=== PATIENT | female | born 1955 | race American Indian/Alaskan Native ===

== ENCOUNTER 2017-10-14 06:03 | Day surgery (SDC) | payer OTHER ==
[2017-10-13 09:11] VITALS: BMI 37.8
[2017-10-14] MEDS ORDERED: ceFAZolin IV 2 gm in Dextrose 2 GM/50 ML BAG IVPB ONE (07:34)
[2017-10-14] MEDS ORDERED: EPINEPHrine 1:1000 Nasal Sol(30mL) ONE (07:34)
[2017-10-14] MEDS ORDERED: Lactated Ringer's 1,000 ML IV ONE ×2 (08:10→11:05)
[2017-10-14] MEDS ORDERED: Propofol 10 mg/ml Inj (20 ML) ONE (08:14)
[2017-10-14] MEDS ORDERED: Midazolam 2 MG/2 ML VIAL ONE (08:14)
[2017-10-14] MEDS ORDERED: Rocuronium 10 mg/ml (5 ml) ONE (09:12)
[2017-10-14] MEDS ORDERED: HYDROmorphone 0.5 mg/0.5 ml ISec IVP PRN (10:36)
[2017-10-14] MEDS ORDERED: Neostigmine Methylsulfate 3mg/3ml Syringe IV ONE (10:40)
--- NOTE | 2017-10-14 11:01 | PCM.SURG1 ---
Surgeon's Initial Post Op Note - Surgeon's Notes Surgeon: Cristian Langley MD [employer] Supervisor: none Type of Anesthesia: General Endo, Block [facility] Pre-Operative Diagnosis: Right knee. #1 medial meniscal tear. #2 chondromalacia all 3 compartments. #3 synovitis Operative Findings: Right knee: #1 complex medial meniscal tear. #2 complex lateral meniscal tear. #3 3 compartment chondromalacia grade 4. #4 3 compartment synovitis. #5 plica bands Post-Operative Diagnosis: Right knee: #1 complex medial meniscal tear. #2 complex lateral meniscal tear. #3 3 compartment chondromalacia grade 4. #4 3 compartment synovitis. #5 plica bands Operation Performed: Right knee: Arthroscopic. #1 partial medial menisectomy. #2 partial lateral menisectomy. #3 extensive synovectomy. #4 chondroplasty medial/lateral/PF compartments Specimen/Specimens Removed: specimen= none. implants= none. complications= none Estimated Blood Loss: EBL {In ML}: 3 Blood Products Given: N/A Drains Used: No Drains Post-Op Condition: Good Date of Surgery/Procedure: 10/14/17 Time of Surgery/Procedure: 11:02
[2017-10-14] MEDS ORDERED: Oxycodone/Acetaminophen 5/325 mg Tab PO PRN (11:02)
[2017-10-14 11:15] VITALS: O2SAT 100
[2017-10-14] MEDS ORDERED: Bupivacaine HCl 0.5% PF (30 ml) Inj ONE (12:03)
--- NOTE | 2017-10-14 12:16 | PCM.ANESB7 ---
Adductor Canal Block - Adductor Canal Block Date of Procedure: 10/14/17 Anesthiologist: aren Procedure Performed: Adductor Canal Block Right - Procedure Adductor Canal Block: The procedure was explained to the patient that it is for the post-operative pain management. Consent was obtained after a thorough discussion with the patient regarding the benefits and possible complications of local anesthetic adductor canal block of the femoral nerve. Standard monitors, as defined by the ASA, were applied to the patient. Time-out was held with the circulating nurse to confirm the appropriate block. After applying supplemental oxygen and administering IV Sedation as needed, the patient was placed in supine position with and the operative leg was flexed slightly at the knee and externally rotated as needed, and was kept anatomically stable. The mid-thigh of the ___ lower extremity was exposed. The ultrasound transducer was then applied transversely along the medial aspect, about midway down the thigh and the femoral artery and vein were identified in appropriate relation with the sartorius muscle. At this time, the femoral nerve was visualized lateral to the femoral artery within the canal. After thorough identification, this area area was prepped with Chloroprep solution three times and 1 % Lidocaine was injected subcutaneously for topical anesthesia. At this point, a #22 gauge Stimuplex 4-inch needle was inserted in-plane in a [id number] orientation, and advanced toward the femoral nerve. Advancement was performed carefully under direct ultrasound visualization. MA. After negative aspiration, ___5__cc of __.5___% ____bupvicaine was injected and this was followed with __15____ cc of ___.5____ % bupivicaine . Under ultrasound guidance the local anesthetics were observed spreading around the femoral nerve. The needle was removed intact and sterile dressing was applied. The patient had stable vital signs, was conscious and in no apparent distress. The patient tolerated the femoral nerve block well with stable vital signs and was prepared for subsequent surgery
[2017-10-14 13:11] VITALS: BP 132/76; PULSE 82; RESP 18; TEMP 97
--- NOTE | 2017-12-08 02:17 | OP ---
Copied To: Cristian Langley MD Attending MD: Cristian Langley MD PROCEDURE DATE: 10/14/2017 PREOPERATIVE DIAGNOSES: Right knee: 1. Medial meniscal tear. 2. Chondromalacia of all three compartments. 3. All three compartment synovitis. 4. Chronic ACL tear (stable). POSTOPERATIVE DIAGNOSIS: Right knee: 1. Complex medial meniscal tear. 2. Complex lateral meniscal tear. 3. Chondromalacia grade III to IV throughout all three compartments. 4. Extensive synovitis throughout all three compartments. 5. Medial and lateral plica bands. 6. Hypertrophic fat pad causing anterior impingement. 7. Chronic ACL tear (stable). PROCEDURE: Right knee arthroscopic, 1. Partial medial meniscectomy. 2. Partial lateral meniscectomy. 3. Extensive synovectomy of all three compartments. 4. Chondroplasty of all three compartments. 5. Resection and debridement of symptomatic medial and lateral plica bands. 6. Resection and debridement of hypertrophic fat pad. 7. Platelet-rich plasma intraarticular injection. 8. Debridement ACL tearing/remnant. SURGEON: Cristian Langley MD [employer] OPERATOR: None. ANESTHESIA: General endotracheal anesthesia with a postop regional nerve block placed by anesthesia staff in PACU. ESTIMATED BLOOD LOSS: 3 mL. SPECIMEN: None. IMPLANTS: None. COMPLICATIONS: None. DRAINS: None. DISPOSITION: The patient was extubated and transferred to PACU in stable condition and tolerated the procedure well. INDICATIONS FOR SURGERY: The patient is a 62-year-old female with a past medical history significant for hypertension and presented to the office for the first time under my care on 05/30/2017 with right knee pain started two years ago, but progressively worsened over the past two months prior to the presentation to the point of being rate 10/10 and disabling. She stated that she was having significant difficulty with going up and down stairs, standing for extended periods of time, lifting any objects or kneeling. She rated the pain as 10/10 and accompanied by periodic episodes of swelling. She had already undergone conservative treatment referred by primary care physician for physical therapy and anti-inflammatory medications as well as [id number] bracing. She was referred for an MRI of the right knee by her primary care physician, which was done at [facility] on 03/30/2017, which was read as: 1. Complete tear of ACL with strain of PCL. 2. A 2-cm osteochondral defect, medial tibial plateau. 3. Complex tears of both medial and lateral menisci. 4. Large joint effusion with chondromalacia of the patella. 5. Chondromalacia and osteoarthritic changes. She underwent under my care cortisone mixture injections in the office on 05/30/2017, 06/27/2017, 07/28/2017 with each injection providing here with near complete resolution obtained that would last approximately three weeks until the pain would start to return. She was compliant with physical therapy and brace usage with each injection lasting only three weeks, and the pain was localized to the medial and lateral joint lines with mechanical symptoms as well as multiple episodes of giving way and buckling and locking. She was indicated for right knee arthroscopic partial meniscectomies of the medial and lateral meniscus versus stabilization/repair and synovectomy, chondroplasty/microfracture and all related indicated procedures. She was referred to her primary care physician for preadmission testing, and the procedure was scheduled at [facility] on 10/14/2017. The risks, benefits and alternatives of the procedure were discussed at length with the patient. The risks include not limited to infection, neurovascular damage, need for further surgery, failure of repair, chondrolysis, acceleration of chondral wear and the need for future total knee arthroplasty if the surgery fails to stop her progression of the degenerative joint disease, development of chronic pain and disability, development of stiffness, development of blood clots including DVT and PE, anesthesia reactions including . After answering all of her questions, she stated that she understood the risks and wished to proceed with surgery. She watched the surgical animation videos and diagnostic animation videos and stated that she had a good understanding of her procedure as well as her multiple diagnoses. I also reviewed at length with the patient the postoperative rehabilitation protocol as she stated that she understood that there is a need for compliance with the rehab protocol in order to maximize the chance of having successful outcome after surgery. Again, she was referred to her primary care physician for preadmission testing and medical evaluation, and the procedure was scheduled at [facility] on 10/14/2017. PROCEDURE IN DETAIL: The patient was identified in the preoperative holding, area and the right knee was marked for surgery. Once again as described above, the risks, benefits, and alternatives of the procedure were discussed at length with the patient, and informed consent was obtained. After a brief discussion with anesthesia staff, the patient was taken to the operating room and placed on the well-padded operating room table with all bony prominences and superficial neurovascular structures were well padded. An initial time-out was done with the surgeon, anesthesia staff, OR staff, all in agreement with the patient, procedure being done and extremity being operated on. General anesthesia was administered without any difficulty or complication. Examination under anesthesia was then carried out. Examination under anesthesia: Right knee with full range of motion compared to contralateral knee, there was patellofemoral crepitance as well as a visible infrapatellar mechanical click representing a symptomatic plica band. There was mild evidence of instability with a 1+ anterior balloon design printer neutral external rotation and internal rotation, negative posterior drawer, negative reverse Little, 1 to 2+ Little with a firm endpoint, negative pivot shift, negative reverse pivot shift, negative posterior lateral corner drawer sign, negative dial sign, patella with crepitance and normal tracking with no evidence of patellofemoral instability. Skin was intact with no swelling, no warmth, no erythema. A tourniquet was placed high on the right thigh, and the right lower extremity was prepped and draped in the standard sterile fashion. A final time-out was done with the surgeon, anesthesia staff, OR staff, all in agreement with the patient, procedure being done and the extremity being operated on. Then, 50 mL of normal saline was used to insufflate the knee joint. A stab incision was made creating the anterior lateral portal through skin down to the subcutaneous tissue down to the level of the capsule. The blunt arthroscopic trocar and cannula were inserted into the suprapatellar pouch, and the knee joint was insufflated with arthroscopic fluid. The arthroscopic camera was inserted, and a diagnostic arthroscopy was then started. DIAGNOSTIC ARTHROSCOPY: Attention was first turned towards the suprapatellar pouch with no evidence of adhesions or loose bodies. Attention was then turned towards the patellofemoral joint where immediately seen was progressive chondromalacia grade III to IV with some areas of subchondral bone exposure. The patella was well seated with no evidence of instability. There were immediately obvious thickened hypertrophic plica bands on the medial and lateral aspects of the inferior pole of the patella creating mechanical symptoms for both the patellofemoral articulation and the medial and lateral femoral condyle. Attention was then turned towards the medial gutter where as stated before there was a thickened plica. Attention was then turned towards the medial compartment where immediately seen was the complex medial meniscal tear of the degenerative process involving the anterior mid body extending to the posterior horn with unstable flap tears that was not amenable to repair. The articular surface of the medial femoral condyle and the medial tibial plateau exhibited grade III to IV chondromalacia throughout with some areas of full-thickness cartilage loss with exposed subchondral bone at the weightbearing aspect of the medial femoral condyle. Attention was then turned towards the lateral compartment, which exhibited grade II to III chondromalacia and no exposed subchondral bone for the lateral femoral condyle and the lateral tibial plateau. The lateral meniscus exhibited complex tearing of the posterior horn that was not amenable to repair and also of a degenerative nature. Attention was then turned towards the intercondylar notch where there was indeed a chronic ACL tear with some scar down the fibers providing some clinical stability. Prior to the diagnostic arthroscopy, an anterior medial portal was created with stab incisions through the skin down the subcutaneous tissue down to the level of the capsule after spinal needle localization was used to identify optimal anterior medial portal entry, and a diagnostic arthroscopy was done with the arthroscopic probe in hand. ARTHROSCOPIC PARTIAL MEDIAL MENISCECTOMY: With the use of the arthroscopic shaver and radiofrequency ablation as well as arthroscopic meniscal biters, a partial medial meniscectomy was carried out removing all of the unstable fragments of the medial meniscal degenerative tearing of flat tearing that was not amenable to repair. After the partial medial meniscectomy was carried out, a smooth contour was established. Approximately 80% of the medial meniscus had been removed back to the medial capsule with almost no significant remnant medical meniscus remaining as this was a significant complex degenerative tear extending from the posterior horn through the mid body up to the anterior horn. Once a smooth contour and all offending tissue was removed from the medial compartments, final images were taken. ARTHROSCOPIC PARTIAL LATERAL MENISCECTOMY: With the use of the arthroscopic shaver and radiofrequency ablation as well as meniscal biters, a partial lateral meniscectomy was carried out establishing a smooth rim of cartilage removing the damaged meniscal tissue and tissue creating mechanical symptoms to the lateral compartment. The complex tearing started at the level of the posterior horn of the lateral meniscus and extended to the posterior mid body. After smooth contour was worked out and all unstable fragments of the lateral meniscus tissue were removed, approximately 40% of lateral meniscus was removed overall establishing a smooth contour and removing mechanical symptoms. ARTHROSCOPIC EXTENSIVE SYNOVECTOMY: With the use of the radiofrequency ablation and arthroscopic shaver, an extensive synovectomy of all three compartments was carried out removing the inflamed hypertrophic synovium extending from the anterior compartment and then two of three compartments of the knee. There was also a debridement and resection of the symptomatic medial and lateral plica bands carried out with maintaining good hemostasis as well as debridement and resection of the symptomatic anterior fat pad causing anterior impingement. After the inflamed tissue was resected, the knee was taken through knee range of motion and indeed the mechanical symptoms of the plica bands and anterior impingement from the hypertrophic fat pad were indicated. ARTHROSCOPIC CHONDROPLASTY OF ALL THREE COMPARTMENTS: With the use of radiofrequency ablation and arthroscopic shaver, chondroplasty of all three compartments including patellofemoral compartments and medial femoral condyle were carried out successfully removing the unstable cartilage flaps from the articular surface and establishing the smooth contour to the patella and the trochlea as well as the medial femoral condyle and the lateral femoral condyle and the medial and lateral tibial plateaus. Once this was carried out with satisfaction and all final arthroscopic imaging was taken, all arthroscopic fluid was removed from the knee joint. ARTHROSCOPIC INTRAARTICULAR PRP INJECTION: With the help of the anesthesia staff, 10 mL of PRP was obtained through a peripheral venous stick. The peripheral venous blood was spun in the [employer] to yield 10 mL of PRP which was injected in its entirety under direct visualization in an intraarticular position in the knee joint. Once the PRP injection was completed, the arthroscopic portals were then closed with a 3-0 Vicryl suture for deep tissue followed by 3-0 Monocryl suture for skin. Sterile dressings were applied and a layer of sterile cast padding was applied from the toes up to the superior thigh followed by a layer of compressive Arnaldo wrap from the toes up to the superior thigh. The knee was then fitted and placed in a postop hinged knee brace locked at 0 degrees extension provided by my office. The patient was then extubated and transferred to the PACU in stable condition and tolerated the procedure well. RATIONALE FOR CODING AND BILLIN. Arthroscopic medial and lateral partial meniscectomies were carried out and therefore were coded and billed. 2. Arthroscopic chondroplasty of all three compartments was carried out successfully establishing a smooth contour to the articular surfaces of all three compartments and therefore was coded and billed as a separate part of the procedure. 3. Extensive synovectomy of all three compartments was carried out successfully including resection of the symptomatic medial and lateral plica bands, debridement and resection of the hypertrophic synovium causing pain through all three compartments, resection and debridement of the hypotrophic anterior fat pads causing anterior impingement. A significant amount of surgical time was dedicated to this portion of the procedure as it was beyond, it was considered usual and customary for synovectomy that was done just for better visualization during arthroscopic surgery as this was a significant portion of the procedure and an independent portion of the procedure. The extensive synovectomy was coded and billed. 4. Intraarticular PRP injection was carried out at the end of the procedure to aid with healing. 5. The knee was fitted and placed in a postoperative hinged knee brace locked at 0-degree extension to help with the patient's recovery as she was significantly deconditioned and had the chronic ACL tear to prevent her from postoperative re-injury. The knee brace was provided by my office and therefore was coded and billed. DISPOSITION: The patient will be discharged home once she has recovered from anesthesia. She is instructed to keep the dressings clean, dry and intact until she follows up in the office. She will be weightbearing as tolerated with the knee joint locked at 0-degree extension until she follows up in the office within one week and already has a postoperative appointment setup at [facility]. She was given a prescription for Percocet for pain control. She has also been given a prescription for Lovenox as DVT prophylaxis one injection daily subcutaneous for a period of two weeks postoperatively. We discussed DVT prophylaxis postoperatively at length during her preoperative visit, and the patient agreed to engage in Lovenox as her DVT prophylaxis. She will contact me directly with any questions or concerns. Cristian Langley MD MTDD
== END 2017-10-14 15:47 | disposition home or self-care (01) ==
LOC: C.SDS 06:03
PROVIDERS: ATTEND Student in an Organized Health Care Education/Training Program
DX: M67.861 Other specified disorders of synovium, right knee (principal); M23.203 Derangement of unspecified medial meniscus due to old tear or injury, right knee; M23.200 Derangement of unspecified lateral meniscus due to old tear or injury, right knee; M94.261 Chondromalacia, right knee; I10 Essential (primary) hypertension; M65.9 Synovitis and tenosynovitis, unspecified; M23.8X1 Other internal derangements of right knee
CPT/HCPCS: 20610; 29876; 97116; 97161; G8978; G8979; G8980; J0690; J1170; J2001; J2250; J2405; J2704; J2710; J3010; J7120